=== PATIENT | female | born 1985 | race Caucasian/White ===

== ENCOUNTER 2021-11-27 17:29 | Emergency (ER) | payer SELFPAY ==
[2021-11-27 17:32] VITALS: BP 132/94; PULSE 112; RESP 14; TEMP 36.8; O2SAT 96; BMI 34.9
--- NOTE | 2021-11-27 17:38 | EX.ED.DYSGE1 ---
HPI History of Present Illness Chief Complaint: Med Refill PFSH PFSH Medical History no medical history Allergy/AdvReac Type Severity Reaction Status Date / Time No Known Allergies Allergy Verified 11/27/21 17:35 Social History Smoking Status: Current every day smoker tobacco type: cigarettes EXAM Physical Exam Const Vital Signs: 11/27/21 17:32 11/27/21 17:37 Temperature 98.3 F Temperature Source Temporal Pulse Rate 112 H Respiratory Rate 14 Respiratory Effort Normal Respiratory Pattern Normal Blood Pressure 132/94 H Blood Pressure Mean 106 Pulse Ox 96 Oxygen Delivery Method Room Air Discharge Plan Triage Chief Complaint: Med Refill ED Provider: Rene Phillips Dx/Rx/DC Orders Clinical Impression: Medication refill, History of chronic back pain Primary Care Provider: DILAN LAMA Referrals: Corinne Salamanca MD [STAFF PHYSICIAN] - As soon as possible Viet May MD [STAFF PHYSICIAN] - As soon as possible Activity Restrictions/Additional Instructions: Call and 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 Or call a local primary care physician to become established. Motrin Tylenol for pain. Disposition Disposition: Home, Self Care
--- NOTE | 2021-11-27 17:48 | EX.ED.DYSGE1 ---
HPI History of Present Illness Chief Complaint: Med Refill Detail of Chief Complaint: Chronic back pain. Requesting chronic narcotic prescription refilled. Informant: patient Onset/Context/Timing Onset: Month(s) Context: Gradual Onset Timing: Continuous Current Severity: Mild Maximum Severity: Mild Narrative Narrative: 36-year-old female has chronic low back pain. Reportedly has compression fractures from a fall years ago. States she has been on hydrocodone 7.5 mg for the last 8 years. She typically sees her physician in [place]. She recently moved to [place] several months ago. She does not have a primary care physician. She was going back and forth to [place] to follow-up with her primary care physician. They told her that they could not have her pay jackson for her visits. And will no longer see her. Her prescription for hydrocodone ran out today. She had a prescription written on October 27 for 65 hydrocodone. She denies any new injury. She denies any change of her symptoms. Prior similar symptoms: Yes Recent Illness/Hospitalization: No PFSH PFSH Medical History no medical history Allergy/AdvReac Type Severity Reaction Status Date / Time No Known Allergies Allergy Verified 11/27/21 17:35 Social History Smoking Status: Current every day smoker tobacco type: cigarettes ROS ROS ED ROS Narrative Chronic back pain. Review of Systems ROS Unobtainable: Denies due to encephalopathy Constitutional Constitutional ED: Denies chills Eyes Eyes: Denies blurry vision ENT ENT ED: Denies ear pain Cardiovascular Cardiovascular: Denies chest pain Respiratory/Chest Respiratory/Chest: Denies cough Gastrointestinal Gastrointestinal: Denies abdominal pain Genitourinary Genitourinary ED: Denies dysuria Musculoskeletal Musculoskeletal: Reports back pain; Denies arthralgias Integumentary Denies abscess Neurologic Neurologic: Denies headache(s) Psychiatric Psychiatric: Denies anxiety Endocrine Endocrinology: Denies cold intolerance Allergic/Immunologic Allergic/Immunologic ED: Denies mouth swelling EXAM Physical Exam Narrative Exam Narrative: 36-year-old female no acute distress. Vital signs are stable afebrile. H EENT exam unremarkable. Lungs are clear. Heart regular rhythm rate about 110 no murmur. Abdomen soft nontender. Moving all 4 extremities. 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 Dorsi plantarflexion. screw machine tender to perispinal area of the lumbar spine. No signs of acute trauma. No redness or warmth. Neurologically she is awake and alert with no focal motor deficits. No cauda equina. No saddle anesthesia. Const Vital Signs: 11/27/21 17:32 11/27/21 17:37 Temperature 98.3 F Temperature Source Temporal Pulse Rate 112 H Respiratory Rate 14 Respiratory Effort Normal Respiratory Pattern Normal Blood Pressure 132/94 H Blood Pressure Mean 106 Pulse Ox 96 Oxygen Delivery Method Room Air Positive well nourished, well developed and obese; Negative for cachectic, contractures or unkempt General Appearance ED: well developed; Negative for unkempt, cachectic or contractures Nutritional Appearance: obese; Negative for cachectic HEENT Reports moist mucous membranes; Denies dry mucous membranes Negative for trauma Mouth ED: No dry mucous membranes Mouth: No dry mucous membranes Eyes PERRL and EOMs intact bilaterally General Eye ED: Negative for pale conjunctiva or scleral icterus Neck no lymphadenopathy, supple and no JVD General: Negative for tenderness Lymph Lymphatic: Negative for other Chest Wall inspection of chest normal and palpation of chest normal Resp normal respiratory effort and clear to auscultation bilaterally Effort and Inspection: Negative for retractions Auscultation: Negative for rales, rhonchi or wheezes Cardio regular rate, regular rhythm, S1 normal heart sound and S2 normal heart sound GI normal to inspection, nondistended, normoactive bowel sounds, non-tender, non-distended and no masses; Negative for hepatosplenomegaly Auscultation: normoactive bowel sounds Palpation: Negative for soft, tender, guarding or splenomegaly Back/Spine no CVA tenderness General Back: Negative for CVA tenderness Cervical Spine: Negative for cervical spine tenderness Extremity normal to inspection General Extremety ED: Negative for edema or tenderness General Extremity: Negative for edema Neuro oriented x3 Sensorium / Orientation: alert; Negative for orientation impaired, lethargic or stuporous Motor Exam: strength 5/5 throughout; Negative for general weakness Psych mental status grossly normal Appearance: Negative for unkempt Skin no rashes or lesions noted and no wounds Rashes: No rashes noted Wounds: Negative for wounds noted MDM MDM MDM Narrative Medical decision making narrative: Explained to the patient that she need to follow-up with a 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 Get her narcotic prescription refilled and controlled by one physician locally. That we could not refill it in the emergency department. She expressed distaste for that answer. I explained to her I was sorry but the state watch is never cardiac prescriptions closely and that this is be done through 1 physician. I offered her pain management to follow-up with. And also Tylenol Motrin for her pain. 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 Or call a local primary care physician to become established. Motrin Tylenol for pain. Disposition Disposition: Home, Self Care
== END 2021-11-27 18:07 | disposition home or self-care (01) ==
LOC: ED 17:58
PROVIDERS: Emergency Provider Emergency Medicine; Visit Provider Emergency Medicine
DX: Z76.0 Encounter for issue of repeat prescription (principal); M54.9 Dorsalgia, unspecified; G89.29 Other chronic pain; F17.210 Nicotine dependence, cigarettes, uncomplicated; E66.9 Obesity, unspecified
CPT/HCPCS: 99282